=== PATIENT | male | born 1950 | race Hispanic/Latino ===

== ENCOUNTER 2020-10-01 13:54 | Emergency (ER) | payer MEDICARE, MEDICAID ==
--- NOTE | 2020-10-01 15:09 | RAD ---
RIGHT RIBS THREE VIEWS: 10/01/20 HISTORY: Fall with right rib pain status post fall. No pneumothorax or pleural effusion. I do not visualize any rib fracture. On the AP projection, there is a well-defined lytic appearing focus in the proximal humeral shaft. It may be cortically based a s I cannot definitely see this on the internally rotated view. Reviewing previous exams, I have no pr evious study that includes this area to evaluate for stability. IMPRESSION: 1. No evidence of rib fracture. 2. Lytic appearing bony focus in the proximal humeral shaft. I cannot exclude this as a neoplast ic process. I would begin with a dedicated plain films of this area and then consideration for bone s can. POS: OFF
== END 2020-10-01 15:45 | disposition home or self-care (01) ==
LOC: MADERS 13:54
DX: S20.211A Contusion of right front wall of thorax, initial encounter (principal); I10 Essential (primary) hypertension; Z79.82 Long term (current) use of aspirin; Z79.899 Other long term (current) drug therapy; W19.XXXA Unspecified fall, initial encounter